=== PATIENT | male | born 1955 | race Caucasian/White ===

== ENCOUNTER 2016-07-07 17:05 | Emergency (ER) | payer BC ==
[~2016-07-07] VITALS: Ht 182.9 cm; Wt 86.0 kg
[~2016-07-07 17:05] MED LIST: LSN20 PO; METO25TA56 PO; MORP30TA23 PO
[2016-07-07 17:16] VITALS: TEMP 36.4; Ht 182.9 cm; Wt 86.0 kg
[2016-07-07] MEDS ORDERED: SODIUM CHLORIDE 0.9% 1000ML 1,000 ML IV STA (17:30)
[2016-07-07] MEDS ORDERED: ONDANSETRON 8 MG/54 ML D5W IV STA (17:30)
[2016-07-07] MEDS: FENTANYL CITRATE INJ 50 MCG/1 ML 2 ML VIAL IV PRN ×4 (17:38→20:18)
[2016-07-07] MEDS ORDERED: IBUP-103 PO (17:51)
[2016-07-07] MEDS ORDERED: GABA-113 PO (17:51)
[2016-07-07] MEDS ORDERED: MULT-923 (17:51)
[2016-07-07] MEDS ORDERED: FIBER (17:51)
[2016-07-07] MEDS ORDERED: ONDANSETRON INJ 8 MG in DEXTROSE 5% 50ML 50 ML IV ONE (18:00)
--- NOTE | 2016-07-07 18:27 | DIAGNOSTIC IMAGING REPORT ---
RIGHT HUMERUS 3 VIEWS HISTORY: right humerus pain, prior pathologic fracture Right COMPARISON: None. FINDINGS: There is an oblique pathologic fracture within the mid shaft of the right humerus. This demonstrates 1.8 cm of medial displacement. There are surgical clips surrounding the mid humerus. There is a permeative lesion within the mid shaft of the right humerus. IMPRESSION: A displaced oblique pathologic fracture within the mid shaft of the right humerus. Electronically signed by: Julian Singh M.D. 07/07/2016 6:25 PM Dictated Date/Time: 07/07/2016 6:24 PM
[2016-07-07 18:29] LABS: BASO % 0.2 %; BASO ABS # 0.02 K/uL (0-0.2); COMPLETE YES; EOS % 3.1 %; HEMATOCRIT 41.7 % (42-52); IG% 0.3 %; LYMPH % 23.6 %; LYMPH ABS # 2.37 K/uL (1.2-3.4); MEAN CELL VOLUME 91.6 fL (80-100); MEAN CORPUSCULAR HEMOGLOBIN 32.1 pg (25-34); MEAN PLATELET VOLUME 9.9 fL (7.4-10.4); NEUT % 67.8 %; PLATELET COUNT 190 K/uL (130-400); RED BLOOD COUNT 4.55 M/uL (4.7-6.1); WHITE BLOOD COUNT 10.04 K/uL (4.8-10.8)
[2016-07-07 18:39] LABS: INR 1.1 (0.9-1.1); PARTIAL THROMBOPLASTIN RATIO 0.8; PROTHROMBIN TIME (PATIENT) 12.2 SECONDS (9.0-12.0)
[2016-07-07 18:44] LABS: ALT/SGPT 18 U/L (12-78); AST/SGOT 12 U/L (15-37); BLOOD UREA NITROGEN 18 mg/dl (7-18); BUN/CREATININE RATIO 16.6 (10-20); CALCIUM 8.6 mg/dl (8.5-10.1); CARBON DIOXIDE 28 mmol/L (21-32); CHLORIDE 107 mmol/L (98-107); GLUCOSE 104 mg/dl (70-99); SODIUM 143 mmol/L (136-145)
[2016-07-07 18:47] LABS: ALKALINE PHOSPHATASE 59 U/L (45-117)
[2016-07-07] MEDS ORDERED: ONDANSETRON INJ 2 MG/ML 2 ML VIAL ONE (20:15)
--- NOTE | 2016-07-07 20:44 | DIAGNOSTIC IMAGING REPORT ---
RIGHT HUMERUS MIN 2 VIEWS ROUTINE CLINICAL HISTORY: post redux Right. Right humerus fracture. COMPARISON STUDY: Right humerus 07/07/2016. FINDINGS: Patient is status post reduction of the pathologic fracture within the mid shaft of the right humerus. This demonstrates improved anatomic alignment. There is persistent medial angulation with 11 mm of medial displacement. The permeative lesion within the mid shaft of the right humerus and surrounding surgical clips are again noted. IMPRESSION: Status post reduction of the pathologic fracture within the mid shaft of the right humerus with improved anatomic alignment. There is persistent medial angulation with 11 mm of medial displacement. Electronically signed by: Julian Singh M.D. 07/07/2016 8:42 PM Dictated Date/Time: 07/07/2016 8:40 PM
[2016-07-07] MEDS ORDERED: OXYCODONE IR HOME PACK PO ONE (21:45)
[2016-07-07] MEDS ORDERED: ONDANSETRON HOME PACK 4MG OD TAB PO ONE (21:45)
[2016-07-07] MEDS ORDERED: OXYCODONE HCL IR 5 MG TAB (IMMEDIATE RELEASE) PO STA (22:02)
[2016-07-07] MEDS ORDERED: ONDA4TAB10 SL (22:04)
[2016-07-07] MEDS ORDERED: OXYC1TAB3 PO (22:04)
[2016-07-07] MEDS ORDERED: ONDANSETRON 4MG OD TAB ONE (22:20)
--- NOTE | 2016-07-07 22:20 | ORTHOPEDIC CONSULTATION ---
DATE OF CONSULTATION: 07/07/2016 EMERGENCY ROOM CONSULTATION CHIEF COMPLAINT: Right arm pain. HISTORY OF PRESENT ILLNESS: The patient is a 60-year-old male with complicated history of the right humerus. He has a diagnosis of rhabdomyosarcoma, about approximately 35 years ago. He had excision in this region and to get clear margins he had an excise into a portion of the bone. He subsequently also had a radial nerve cross in this region. He subsequently had a fracture the following year, which was treated conservatively and another fracture a year following that, again treated conservatively. The fracture was healed. A year after that, he underwent surgery for a tendon transfer for treatment of his radial nerve palsy. He was playing with his dog and had an external rotation type trauma to the arm and felt a pop. X-rays demonstrate an oblique fracture of the humerus with moth-eaten appearance consistent with his previous procedures. Currently, complaining of pain in the humerus as well as some tingling in the 4th and 5th digits. The sensation in the remaining digits is at baseline. PAST MEDICAL HISTORY: Graves disease, hypertension, and rhabdomyosarcoma. PAST SURGICAL HISTORY: Excision of rhabdomyosarcoma of the right arm. ALLERGIES: IVP DYE. MEDICATIONS: Metoprolol, lisinopril. FAMILY HISTORY: Noncontributory. REVIEW OF SYSTEMS: As above. PHYSICAL EXAMINATION: VITAL SIGNS: Afebrile. Vital signs stable. GENERAL: Alert and oriented x3, no acute distress. Mood and affect are normal. He is pleasant and cooperative with examination. HEENT: Atraumatic. CHEST: Clear. CARDIOVASCULAR: Regular rate and rhythm. ABDOMEN: Soft, nontender. EXTREMITIES: Right upper extremity has palpable radial pulse. The light touch sensation is decreased over the entirety of the hand, distally. He has normal sensation over the palm. He complains of some decreased sensation over the fourth and fifth digits which is different than from his baseline. He has a baseline sensation which is slightly decreased from normal from what has been over the thumb, index and long fingers. He has some motion to dorsiflexion of the wrist. From his tendon transfer, he has difficulty in extension of the thumb. He is able to cross his fingers and is able to bring the hand to fist. Examination more proximally, no tenderness to palpation along the forearm or elbow. There is a deformity on mid aspect of the humerus with apex anterior. Skin is intact. He has a surgical scar posteriorly along the arm and significant soft tissue defect posteriorly from his previous triceps excision for his rhabdomyosarcoma. Examination of contralateral extremity is unremarkable. IMAGING DATA: X-rays of the right humerus demonstrates multiple post-surgical cachorro in position. It is a spiral oblique fracture of the humerus. There is some moth-eaten appearance around the fracture site. No changes of the bone, more proximally or distally. Post-reduction x-rays - the fracture is shortened about 1.5 cm and 100% ulnarly translated. Post-reduction x-rays demonstrate good mu-ism of alignment, both on AP as well as lateral x-rays. ASSESSMENT: Displaced right humerus fracture status post tumor excision, 35 years ago with several previous fractures treated nonoperatively. PLAN: My hope will be to treat this fracture nonoperatively. There is some concerning findings on his bone, it is hard to know whether these are more acute findings of change in the bone or if this is residual changes from his previous fractures as well as his tumor excision. We were able to get a reasonable reduction. He is in a coaptation splint with a posterior bolster currently. I will see him back in the office on for followup x-rays. All questions were answered.
--- NOTE | 2016-07-07 22:27 | OPERATIVE REPORT ---
DATE OF OPERATION: 07/07/2016 CHIEF COMPLAINT: Right arm pain. PREPROCEDURE DIAGNOSIS: Displaced right humerus fracture. POSTPROCEDURE DIAGNOSIS: Same. PROCEDURE: Closed reduction and splinting, right humerus fracture. SURGEON: Dr. Gabriel Garcia. CHANGE MANAGEMENT LEAD: None. ANESTHESIA: None. COMPLICATIONS: None. ESTIMATED BLOOD LOSS: None. INDICATIONS: The patient is a 60-year-old male who had previously a tumor excision of his humerus with need for removal portion of the bone and he subsequently developed 2 separate fractures of the humerus, both of which were treated nonoperatively. He sustained an injury earlier today with his dog, felt a pop in the arm. X-rays demonstrated displaced humerus fracture. Given the amount of displacement, I recommended closed reduction and coaptation splinting. Risks, benefits and alternatives to procedure were discussed with the patient and he wished to proceed. DESCRIPTION OF PROCEDURE: The patient was identified, laterality was confirmed. We gave him some IV narcotic pain medication and then performed a closed reduction, placed a coaptation splint on the arm. Initial post-reduction x-rays were not adequate. We reduced, so the splint was removed and I re-reduced the arm, placed a coaptation splint as well as a posterior splint in place. These post-reduction x-rays are much better on alignment with good anabaptism of the alignment both on AP and lateral x-rays. He tolerated this well. We will see him back in the office on . I attest to the content of the Intraoperative Record and any orders documented therein. Any exceptio ns are noted below.
[2016-07-07 22:58] VITALS: BP 117/79; PULSE 73; O2SAT 98
--- NOTE | 2016-07-07 23:28 | EMERGENCY ROOM VISIT NOTE ---
History Report prepared by Heriberto: Robert Mccoy Under the Supervision of: Dr. Peng Macdonald M.D. First contact with patient: 17:26 Chief Complaint: ARM PAIN Stated Complaint: COMPOUND FRACTURE IN RT HUMERUS History of Present Illness The patient is a 60 year old male who presents to the Emergency Room with complaints of persistent traumatic right arm pain since earlier today. The pain is rated 7 or 8/10 in severity and is felt throughout the upper right arm. The patient was playing with his dog when he injured the arm. The dog was falling off the bed which the patient tried to prevent when he heard the arm "crack". He became lightheaded after the incident. The patient also complains of nausea but he has not vomited. He has new right upper extremity tingling in the fingers. The arm is fragile from a previous tumor removal from that arm. He has also had triceps muscle removed from the arm. The patient broke his right arm twice, with the last time being 30 years ago. He followed up with Orthopedic surgery in [place]. The patient has history of thyroid disease. Patient denies LOC, headache, visual changes, neck pain, chest pain, breathing difficulties, vomiting, abdominal pain, back pain, left upper extremity pain, lower extremity pain, weakness, open wounds, active bleeding, or other complaints. Source of History: patient Onset: earlier today Position: arm (right) Symptom Intensity: 7 or 8/10 Quality: other (traumatic) Timing: other (persistent) Associated Symptoms: + nausea, + numbness Review of Systems See HPI for pertinent positives and negatives. A total of ten systems were reviewed and were otherwise negative. Past Medical & Surgical Medical Problems: (1) Bone cancer (2) Thyroid disease Family History No pertinent family history Social History Smoking Status: Former Smoker Alcohol Use: none Drug Use: none Occupation Status: employed Current/Historical Medications Scheduled Lisinopril (Lisinopril), 20 MG PO DAILY Metoprolol Tartrate (Lopressor) (Lopressor), 25 MG PO BID Ondasetron Odt (Zofran Odt), 4 MG SL Q6H Scheduled PRN Oxycodone Ir (Roxicodone Ir), 1-2 TAB PO Q4H PRN for Severe Pain Miscellaneous Medications Fiber Laxative (Fiber Laxative) Gabapentin (Neurontin), 300 MG PO Ibuprofen Tab (Advil), 200 MG PO Multiple Vitamins W/ Minerals (Multivitamin Men) Allergies Coded Allergies: Iodinated Diagnostic Agents (Verified Allergy, Unknown, IVP DYE = HIVES, ) Uncoded Allergies: HAY FEVER (Allergy, Unknown, 04/01/02) Physical Exam Vital Signs Date Time Temp Pulse Resp B/P Pulse Ox O2 Delivery O2 Flow Rate FiO2 07/07/16 22:58 73 18 117/79 98 07/07/16 21:44 69 07/07/16 21:00 75 18 119/74 95 Room Air 07/07/16 20:20 67 16 127/79 97 Room Air 07/07/16 18:49 63 16 120/80 98 Room Air 07/07/16 17:38 61 07/07/16 17:16 36.4 59 22 72/52 95 Room Air Physical Exam GENERAL: Awake, alert, uncomfortable appearing, no significant distress HEAD: Normocephalic, atraumatic. No maier sign. No raccoon eyes. EYES: Normal conjunctiva. PERRL. EARS: External ears normal. Right TM normal. Left TM normal. NOSE: Atraumatic OROPHARYNX: Lips, tongue, and mucosa unremarkable. No erythema or exudate. NECK: Supple. No tracheal deviation or JVD. No posterior midline tenderness. No step offs noted. RESPIRATORY: CTA bilaterally CARDIAC: Regular rate, normal rhythm. ABDOMEN: Inspection reveals no abnormalities. Soft, non distended. No tenderness to palpation. No hernias. BACK: No midline step offs or tenderness to palpation. Unremarkable. PELVIS: Stable to rock. SKIN: Normal. LYMPH: No adenopathy. MUSCULOSKELETAL: New tingling in the right upper 4th and 5th digits. Thumb extension limited secondary to prior surgery. Triceps area of the right upper arm is generally tender with surgical alteration to the musculature. Range of motion of right elbow and shoulder limited secondary to pain. Tenderness to the proximal right humerus and deltoid. Left upper extremity and bilateral lower extremities are atraumatic. NEURO: GCS 15. Normal sensorium. No sensory or motor deficits noted. Medical Decision & Procedures ER Provider Diagnostic Interpretation: Radiology results as stated below per my review and radiologist interpretation: RIGHT HUMERUS 3 VIEWS HISTORY: right humerus pain, prior pathologic fracture Right COMPARISON: None. FINDINGS: There is an oblique pathologic fracture within the mid shaft of the right humerus. This demonstrates 1.8 cm of medial displacement. There are surgical clips surrounding the mid humerus. There is a permeative lesion within the mid shaft of the right humerus. IMPRESSION: A displaced oblique pathologic fracture within the mid shaft of the right humerus. Electronically signed by: Julian Singh M.D. 07/07/2016 6:25 PM Dictated Date/Time: 07/07/2016 6:24 PM RIGHT HUMERUS MIN 2 VIEWS ROUTINE CLINICAL HISTORY: post redux Right. Right humerus fracture. COMPARISON STUDY: Right humerus 07/07/2016. FINDINGS: Patient is status post reduction of the pathologic fracture within the mid shaft of the right humerus. This demonstrates improved anatomic alignment. There is persistent medial angulation with 11 mm of medial displacement. The permeative lesion within the mid shaft of the right humerus and surrounding surgical clips are again noted. IMPRESSION: Status post reduction of the pathologic fracture within the mid shaft of the right humerus with improved anatomic alignment. There is persistent medial angulation with 11 mm of medial displacement. Electronically signed by: Julian Singh M.D. 07/07/2016 8:42 PM Dictated Date/Time: 07/07/2016 8:40 PM Laboratory Results 07/07/16 18:15 Red Blood Count 4.55, Mean Corpuscular Volume 91.6, Mean Corpuscular Hemoglobin 32.1, Mean Corpuscular Hemoglobin Concent 35.0, Mean Platelet Volume 9.9, Neutrophils (%) (Auto) 67.8, Lymphocytes (%) (Auto) 23.6, Monocytes (%) (Auto) 5.0, Eosinophils (%) (Auto) 3.1, Basophils (%) (Auto) 0.2, Neutrophils # (Auto) 6.81, Lymphocytes # (Auto) 2.37, Monocytes # (Auto) 0.50, Eosinophils # (Auto) 0.31, Basophils # (Auto) 0.02 07/07/16 18:15 Test 07/07/16 18:15 White Blood Count 10.04 K/uL (4.8-10.8) Red Blood Count 4.55 M/uL (4.7-6.1) Hemoglobin 14.6 g/dL (14.0-18.0) Hematocrit 41.7 % (42-52) Mean Corpuscular Volume 91.6 fL (80-100) Mean Corpuscular Hemoglobin 32.1 pg (25-34) Mean Corpuscular Hemoglobin Concent 35.0 g/dl (32-36) Platelet Count 190 K/uL (130-400) Mean Platelet Volume 9.9 fL (7.4-10.4) Neutrophils (%) (Auto) 67.8 % Lymphocytes (%) (Auto) 23.6 % Monocytes (%) (Auto) 5.0 % Eosinophils (%) (Auto) 3.1 % Basophils (%) (Auto) 0.2 % Neutrophils # (Auto) 6.81 K/uL (1.4-6.5) Lymphocytes # (Auto) 2.37 K/uL (1.2-3.4) Monocytes # (Auto) 0.50 K/uL (0.11-0.59) Eosinophils # (Auto) 0.31 K/uL (0-0.5) Basophils # (Auto) 0.02 K/uL (0-0.2) RDW Standard Deviation 42.8 fL (36.4-46.3) RDW Coefficient of Variation 12.7 % (11.5-14.5) Immature Granulocyte % (Auto) 0.3 % Immature Granulocyte # (Auto) 0.03 K/uL (0.00-0.02) Prothrombin Time 12.2 SECONDS (9.0-12.0) Prothromb Time International Ratio 1.1 (0.9-1.1) Activated Partial Thromboplast Time 21.6 SECONDS (21.0-31.0) Partial Thromboplastin Ratio 0.8 Anion Gap 8.0 mmol/L (3-11) Est Creatinine Clear Calc Drug Dose 80.4 ml/min Estimated GFR () 85.3 Estimated GFR (Non- 73.6 BUN/Creatinine Ratio 16.6 (10-20) Calcium Level 8.6 mg/dl (8.5-10.1) Total Bilirubin 0.3 mg/dl (0.2-1) Direct Bilirubin < 0.1 mg/dl (0-0.2) Aspartate Amino Transf (AST/SGOT) 12 U/L (15-37) Alanine Aminotransferase (ALT/SGPT) 18 U/L (12-78) Alkaline Phosphatase 59 U/L (45-117) Total Protein 6.6 gm/dl (6.4-8.2) Albumin 3.6 gm/dl (3.4-5.0) Lipase 172 U/L (73-393) Laboratory results reviewed by me Medications Administered Medications (Trade) Dose Ordered Sig/Gege Route Start Time Stop Time Status Last Admin Dose Admin Sodium Chloride (Nss 1000ml) 1,000 ml @ 999 mls/hr Q1H1M STAT IV 07/07/16 17:30 07/07/16 18:30 DC 07/07/16 17:30 999 MLS/HR Ondansetron HCl (Zofran 8mg Iv) 8 mg NOW STAT IV 07/07/16 17:30 07/07/16 17:33 DC 07/07/16 18:00 8 MG Fentanyl Citrate (Fentanyl Inj) 100 mcg Q20M PRN IV 07/07/16 17:30 07/21/16 17:29 07/07/16 20:18 100 MCG Ondansetron HCl (Zofran Inj) 4 mg STK-MED ONCE .ROUTE 07/07/16 20:15 07/07/16 20:16 DC 07/07/16 20:15 4 MG Ondansetron HCl (ZOFRAN ODT 4MG Home Pack) 1 homepack UD ONCE PO 07/07/16 21:45 07/07/16 21:46 DC 07/07/16 21:45 1 HOMEPACK Oxycodone HCl (Roxicodone Immediate Rel 5MG Home Pack) 1 homepack UD ONCE PO 07/07/16 21:45 07/07/16 21:46 DC 07/07/16 22:22 1 HOMEPACK Oxycodone HCl (Roxicodone Immediate Rel Tab) 5 mg NOW STAT PO 07/07/16 22:02 07/07/16 22:03 DC 07/07/16 22:21 5 MG Ondansetron HCl (Zofran Odt) 4 mg STK-MED ONCE .ROUTE 07/07/16 22:20 07/07/16 22:21 DC 07/07/16 22:20 4 MG ECG Indication: other (near syncope) Rate (beats per minute): 61 Rhythm: normal sinus Findings: no acute ischemic change, no ectopy ED Course 1730: The patient was evaluated in room A4b. A complete history and physical exam was performed. 1730: Fentanyl 100 mcg IV, Zofran 8 mg IV, NSS 1000 ml @ 999 mls/hr. 1800: Ondansetron HCl 8 mg / dextrose 54 ml @ 216 mls/hr. 1807: Reassessed the patient. 1834: Discussed the case with Dr. Garcia, [facility]. He will look at the X-ray and call me back. 1906: De. Garcia called back. He will be in to see the patient. 1907: Updated the patient. He is feeling okay. 1919: Dr. Garcia at bedside. 2144: Oxycodone IR 5 mg PO homepack, Zofran Odt 4 mg PO homepack. 2146: Dr. Garcia wrapped the patient's arm. They should follow up in the Orthopedics Office. 2154: I reevaluated the patient. Discussed results and discharge instructions: He verbalized understanding and agreement. The patient is ready for discharge. Medical Decision Prior records reviewed and summarized above. Triage Nursing notes reviewed and agree them. Additional history obtained from family. The patient's history was concerning for traumatic injury. Differential diagnosis: Etiologies such as fracture, dislocation, neurovascular compromise, compartment syndrome, soft tissue injury, as well as others were entertained. Physical examination: Consistent with an isolated right arm injury. ER treatment provided: IV normal saline IV Zofran IV fentanyl On reassessment the patient felt better. Splinting and reduction by orthopedics Oral oxycodone and Zofran Diagnostics interpreted by me: ECG: Normal The labs revealed an unremarkable CBC, coags, and chemistry panel. Imaging studies: Xrays as above. Consultation: A consultation was placed with the orthopedist, Dr. Gabriel Garcia. The case was discussed and diagnostics were reviewed. The patient was evaluated in the ER for further treatment. The patient was splinted. He was placed in a sling. He will see the patient in the office for follow-up. By the evaluation outlined above emergent etiologies such as open fracture, dislocation, neurovascular compromise, compartment syndrome, infections, as well as others were deemed relatively unlikely. The patient and significant other were informed about the findings as listed above. All questions were answered and they were pleased with the treatment. Return instructions were outlined and the patient was discharged in stable condition. Prescription management: Oxy IR Zofran Referral: The patient was referred to [facility] for follow-up care. The patient was referred to their primary care physician in 2 to 3 days for a recheck of your current condition. The chart was completed utilizing [employer] Speech voice recognition software. Grammatical errors, random word insertions, pronoun errors, and incomplete sentences are an occasional consequence of this system due to software limitations, ambient noise, and hardware issues. Any formal questions or concerns about the content, text, or information contained within the body of this dictation should be directly addressed to the physician for clarification. Consults Time Called: 1829 Consulting Physician: Dr. Garcia, [facility] Returned Call: 1834 He will look at the X-ray and call me back. Impression Primary Impression: Right humeral fracture Scribe Attestation The scribe's documentation has been prepared under my direction and personally reviewed by me in its entirety. I confirm that the note above accurately reflects all work, treatment, procedures, and medical decision making performed by me. Departure Information Dispostion Home / Self-Care Prescriptions Ondasetron Odt (ZOFRAN ODT) 4 Mg Tab 4 MG SL Q6H for Nausea, #6 TAB Prov: Peng Macdonald MD 07/07/16 Oxycodone Ir (Roxicodone Ir) 5 Mg Tab 1-2 TAB PO Q4H Y for Severe Pain, #24 TAB Prov: Peng Macdonald MD 07/07/16 Referrals Francisco Morgan M.D. (PCP) Forms HOME CARE DOCUMENTATION FORM, IMPORTANT VISIT INFORMATION Patient Instructions My [facility] Additional Instructions ORTHOPEDIC INSTRUCTIONS: DO NOT drive, drink alcohol, operate machinery, or perform dangerous activities today. You were given medications in the ER that can affect your ability to safely function or operate a vehicle. Oxycodone (OxyIR) 5mg: Take 1-2 pills every four hours for breakthrough pain. Avoid alcohol, operating machinery or dangerous equipment, working on ladders or roofs, DRIVING, or situations where being under the influence may be dangerous. It is recommended to use an [id number] stool softener such as Colace, 100mg twice daily while taking this medication to avoid constipation. Ibuprofen(Motrin, Advil) may be used for fever or pain. Use 600mg every six hours as needed. Take with food. Avoid using more than 2400mg in a 24 hour period. Do not use 2400mg per day for more than three consecutive days without physician direction. Prolonged inappropriate use can lead to stomach upset or ulcers. (AND/OR) Acetaminophen(Tylenol) may be used for fever or pain. Use 1000mg every six hours as needed. Avoid using more than 4000mg in a 24 hour period. Zofran 4 mg oral dissolving tablets: take one tablet and allow it to melt in your mouth every 4 hours as needed for nausea. Ice compresses for 20 minutes at a time four times daily for 2-3 days. Use the sling as instructed. Remove your arm from the sling 4-6 times a day and move all the joints around to keep them loose. Rest and elevate your injury. Do not get the splint wet. If your splint feels excessively tight, you have worsening pain, develop numbness or tingling, or your digits appear blue, loosen the radha wrap. Then reapply the radha wrap gently without removing the splint. If your symptoms are not quickly relieved return to the ER for re- evaluation. Return to the ER immediately for any numbness, tingling, severe pain, extreme swelling in the extremity or as needed. Call [facility], [phone], tomorrow to arrange follow up for your injury on with Dr. Garcia.
== END 2016-07-07 23:01 | disposition home or self-care (01) ==
LOC: C.EDB 17:06 → C.EDA 23:01
DX: M84.421A Pathological fracture, right humerus, initial encounter for fracture (principal); R42 Dizziness and giddiness; R11.0 Nausea; R20.2 Paresthesia of skin; E07.9 Disorder of thyroid, unspecified; Z79.899 Other long term (current) drug therapy; Z85.830 Personal history of malignant neoplasm of bone; Z87.828 Personal history of other (healed) physical injury and trauma; Z87.891 Personal history of nicotine dependence; Z98.890 Other specified postprocedural states; X58.XXXA Exposure to other specified factors, initial encounter

== ENCOUNTER 2025-02-13 13:52 | Inpatient (IN) ==
[2025-02-13 15:04] LABS: Hematocrit (blood only) 44.0 % (42.0-52.0); Hemoglobin 16.1 g/dL (14.0-18.0); Immature Granulocytes # (auto) 0.01 K/uL (0.01-0.20); Immature Granulocytes % (auto) 0.1 %; Mean Corpuscular Hemoglobin 31.6 pg (25.0-34.0); Mean Corpuscular Volume 86.3 fL (80.0-100.0); Platelet Count 188 K/uL (130-400); RDW Standard Deviation 38.2 fL (36.4-46.3); Red Blood Count 5.10 M/uL (4.70-6.10); White Blood Count 7.43 K/ul (4.8-10.8)
[2025-02-13 15:20] LABS: Alanine Aminotransferase 16 U/L (7-52); Albumin Globulin Ratio 1.4 (0.9-2); Albumin Level 4.5 gm/dl (3.4-5.0); Alkaline Phosphatase 85 U/L (34-104); Anion Gap 15 (3-11); Bilirubin,Total 1.3 mg/dl (0.2-1.0); Blood Urea Nitrogen 15 mg/dl (6-23); Calcium 9.9 mg/dl (8.6-10.3); Carbon Dioxide 23 mmol/L (21-32); Chloride 101 mmol/L (98-107); Globulin 3.2 gm/dl (2.5-4.0); Glucose 130 mg/dl (70-99(Fasting)); Lipase 50 U/L (11-82); Magnesium 1.8 mg/dl (1.7-2.4); Potassium 2.9 mmol/L (3.5-5.1); Sodium 139 mmol/L (136-145); Total Protein 7.7 gm/dl (6.0-8.3)
--- NOTE | 2025-02-13 15:20 | Emergency Department Note ---
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 Noted a large stool ball on [place] A Lacey and has had some diarrhea. Maybe a little bit of mid abdominal discomfort. More significantly however the last several days decreased intake with some fatigue and body ache. Maybe a little bit of nasal congestion. No fevers. Does not feel short of breath or chest pain but they have noticed maybe he has been breathing just a little bit fast. Not hypoxic at home on the pulse ox. Has been able to really keep down his meds the last 2 days due to nausea. Has Zofran at home but has not used it as it has not been helpful in the past. No falls with generalized weakness. PAST MEDICAL HISTORY: As noted above MEDICATIONS: Reviewed home medications SOCIAL HISTORY: PHYSICAL EXAM: GENERAL: alert and oriented in no acute distress on stretcher Head: normocephalic and atraumatic EYES: No injection, discharge or icterus. NECK: Trachea midline. Postsurgical scars without erythema ENT: Mucous membranes pink and moist. LUNGS: Airway patent. No retractions. Breath sounds clear with good air entry bilaterally. HEART: Regular rate and rhythm. No chest wall tenderness ABDOMEN: Soft mildly tender mid abdomen without guarding or peritonitis. SKIN: Acyanotic, warm, dry, without rashes EXTREMITIES: Without swelling, tenderness or deformity NEUROLOGICAL: No aphasia. No facial droop or slurred speech. Normal strength and tone in the extremities. Sensation to gross touch normal. EK bpm normal sinus rhythm. No PVC or PAC. No acute ST segment elevation. QTc 490 CONTINUOUS CARDIAC MONITORING: was ordered and showed a heart rate of 60s bpm in normal sinus rhythm Patient's laboratory studies and imaging reviewed. Differential includes Infection, dehydration, metabolic abnormality, hypo/hyperglycemia, electrolyte disturbance, anemia, hypoxia, cardiac sources, intracerebral event, toxicologic, neurologic, as well as other pathologies. IMPRESSION/MEDICAL DECISION MAKING: Patient significant history of head neck cancer now more or less liquid diet nausea decreased intake. Has had some impaction constipation and hemoglobin discomfort and the nausea besides fluids and Zofran CT abdomen pelvis obtained. Basic blood work is obtained. No fevers. COVID flu RSV testing is sent as he does report some bodyaches generalized weakness and sinus congestion. I do want to exclude flu/COVID. Blood work here completed without significant anemia or leukocytosis. No renal dysfunction noted but an anion gap of 15 as well as a potassium of 2.9. Again do question given his poor intake and recent diarrhea if this is causing these abnormalities. Magnesium 1.8 is not severely low. No evidence concerning for acute hepatitis or pancreatitis at this time of significance. Troponin completed as well as EKG but do not believe this acute NC. Doubt PE and again denies significant respiratory issues. Not hypoxic here or tachypneic. Blood work does return with a mildly elevated troponin of 33. Question this is a bit of demand. Again receiving IV fluids, magnesium, and potassium here. Discussed with him and family staying for hydration as well as trending of his troponin which along with his weakness should improve with hydration and electrolyte supplementation. CT abdomen pelvis does not show an obstructive finding or finding of significant retained stool. Negative COVID flu RSV testing. DIAGNOSIS: Weakness, hypokalemia, elevated troponin DISPOSITION: Hospitalist will evaluate Patient was agreeable with this plan. 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) Subclinical hypothyroidism Unsatisfactory cheondoism of tooth Traumatic ulceration of tongue Neoplasm of lateral border of tongue Hypertension Gout Elevated PSA BPH (benign prostatic hyperplasia) Prostate cancer screening Urinary symptom or sign Graves' disease in remission Hyperthyroidism Herniation of lumbar intervertebral disc with radiculopathy (Acute 03/15/14) Thyroid disease (Chronic) Medical History Band keratopathy Detached retina Extruding scleral buckle History of brachytherapy High cholesterol History of chemotherapy Rhabdomyosarcoma Anemia Surgical History History of surgery History of radical dissection of right side of neck History of cataract surgery History of surgery Hx of inguinal hernia surgery History of surgery H/O cervical discectomy History of hemilaminectomy Family History Daughter Diabetes Autoimmune disorder Mother Lung cancer Father Myocardial infarction Medical history unknown Social History Smoking Status: Former smoker Tobacco Type: Cigarettes packs per day: 1; Cigarettes Per Day: 1-2 PPD x 20yrs; Do You Dip or Chew Tobacco: No; Hx Alcohol Use: No Hx Substance Use: Yes (Daily ) Prescribed Medications: Marijuana Preferred Language: Egyptian Communication Ability: Effective Communication Tools: IPad Visual Impairment: No Limitations Hearing Ability: Normal Yarn Skeins Examiner Required: No Beliefs That Will Affect Care: None marital status: Current Living Situation: Spouse 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 How many Children do You have: 1 Feels Safe at Home: Yes Diet: regular caffeine: No during the past year weight has: remained stable Allergies Allergies Allergy/AdvReac Type Severity Reaction Status Date / Time moxifloxacin Allergy Severe FLU LIKE Verified 02/13/25 17:49 SYMPTOMS sulfamethoxazole Allergy Intermediate Rash Verified 02/13/25 17:50 [From Bactrim] trimethoprim [From Bactrim] Allergy Intermediate Rash Verified 02/13/25 17:50 Iodinated Contrast Media Allergy Unknown IVP DYE = Verified 02/02/25 14:46 HIVES pollen extracts Allergy Unknown Sneezing Verified 02/13/25 17:50 Home Meds Home Medications Medication Instructions Recorded Confirmed aspirin 81 mg tablet,delayed 81 mg PO DAILY 12/07/18 02/13/25 release (Adult Low Dose Aspirin) lisinopril 20 mg tablet 40 mg PO DAILY 06/03/23 02/13/25 cetirizine 10 mg capsule (All Day 10 mg PO DAILY PRN Allergy Symptoms 02/04/24 02/13/25 Allergy (cetirizine)) fluorometholone acetate 0.1 % eye 1 drp ophthalmic (eye) DAILY 02/04/24 02/13/25 drops,suspension fluticasone propionate 50 2 spray intranasal DAILY PRN 02/04/24 02/13/25 mcg/actuation nasal Allergy Symptoms spray,suspension timolol 0.5 % eye drops 1 drp ophthalmic (eye) DAILY 02/04/24 02/13/25 escitalopram oxalate 20 mg tablet 20 mg PO DAILY 03/29/24 02/13/25 (Lexapro) hydroxyzine HCl 10 mg tablet 10 mg PO TID PRN Anxiety 03/29/24 02/13/25 verapamil 40 mg tablet 40 mg PO QID 07/23/24 02/13/25 pregabalin 75 mg capsule (Lyrica) 150 mg PO BID 11/30/24 02/13/25 Previous Rx's Medication Instructions Recorded levothyroxine 125 mcg tablet 125 mcg PO DAILY #90 tabs 11/30/24 Results & Data (ED) Vital Signs Vital Signs - 24 hr 02/13/25 14:02 02/13/25 14:53 02/13/25 15:56 Temperature 37.1 C Temperature Source Temporal Artery Scan Pulse Rate 81 73 Pulse Rate [Right Finger] 70 Pulse Rate from SpO2 Sensor Pulse Rhythm [Right Finger] Regular Pulse Strength [Right Finger] Normal Respiratory Rate 18 16 Respiratory Effort / Characteristics Non-Labored Spontaneous Non-Labored Respiratory Depth Normal Normal Respiratory Pattern Regular Blood Pressure 149/91 H Blood Pressure [Right Arm] 163/95 H Blood Pressure Mean 110 Blood Pressure Mean [Right Arm] 117 Blood Pressure Position Sitting Blood Pressure Position [Right Arm] Lying Pulse Oximetry 98 98 Oxygen Delivery Method Room Air Room Air Sepsis Recent Fever Within 48 Hours No Sepsis New/Unexplained Change in Mental Status N/A Sepsis Action Taken by Nursing No Action Required 02/13/25 16:00 02/13/25 16:30 02/13/25 17:00 Temperature Temperature Source Pulse Rate 59 L 64 Pulse Rate [Right Finger] Pulse Rate from SpO2 Sensor 60 64 64 Pulse Rhythm [Right Finger] Pulse Strength [Right Finger] Respiratory Rate 19 22 Respiratory Effort / Characteristics Respiratory Depth Respiratory Pattern Blood Pressure 170/98 H 165/99 H 165/98 H Blood Pressure [Right Arm] Blood Pressure Mean 122 121 120 Blood Pressure Mean [Right Arm] Blood Pressure Position Blood Pressure Position [Right Arm] Pulse Oximetry 98 98 96 Oxygen Delivery Method Sepsis Recent Fever Within 48 Hours Sepsis New/Unexplained Change in Mental Status Sepsis Action Taken by Nursing Laboratory Data 02/13/25 14:45 02/13/25 14:45 Lab Results 02/13/25 02/13/25 Range/Units 14:45 16:00 WBC 7.43 (4.8-10.8) K/ul RBC 5.10 (4.70-6.10) M/uL Hgb 16.1 (14.0-18.0) g/dL Hct 44.0 (42.0-52.0) % MCV 86.3 (80.0-100.0) fL MCH 31.6 (25.0-34.0) pg MCHC 36.6 H (32.0-36.0) g/dL RDW Std Deviation 38.2 (36.4-46.3) fL RDW Coeff of Linda 12.1 (11.5-14.5) % Plt Count 188 (130-400) K/uL MPV 11.0 (9.4-12.4) fL Immature Gran % (Auto) 0.1 % Neut % (Auto) 87.0 % Lymph % (Auto) 6.1 % Nance % (Auto) 6.5 % Eos % (Auto) 0.0 % Baso % (Auto) 0.3 % Neut # (Auto) 6.47 (1.40-6.50) K/uL Lymph # (Auto) 0.45 L (1.20-3.40) K/uL Nance # (Auto) 0.48 (0.11-0.59) K/uL Eos # (Auto) 0.00 (0.00-0.50) K/uL Baso # (Auto) 0.02 (0.00-0.20) K/uL Immature Gran # (Auto) 0.01 (0.01-0.20) K/uL Sodium 139 (136-145) mmol/L Potassium 2.9 L (3.5-5.1) mmol/L Chloride 101 (98-107) mmol/L Carbon Dioxide 23 (21-32) mmol/L Anion Gap 15 H (3-11) BUN 15 (6-23) mg/dl Creatinine 0.81 (0.6-1.4) mg/dl Est Cr Clr Drug Dosing Not Reportable eGFR 96.64 BUN/Creatinine Ratio 18.5 (10-20) Glucose 130 H (70-99(Fasting)) mg/dl Calcium 9.9 (8.6-10.3) mg/dl Magnesium 1.8 (1.7-2.4) mg/dl Total Bilirubin 1.3 H (0.2-1.0) mg/dl AST 50 H (13-39) U/L ALT 16 (7-52) U/L Alkaline Phosphatase 85 (34-104) U/L Troponin I High Sens 33.9 H (0-20) pg/ml Total Protein 7.7 (6.0-8.3) gm/dl Albumin 4.5 (3.4-5.0) gm/dl Globulin 3.2 (2.5-4.0) gm/dl Albumin/Globulin Ratio 1.4 (0.9-2) Lipase 50 (11-82) U/L SARS-CoV-2 (PCR) NEGATIVE (Negative) Influenza Type A (PCR) Negative (Neg) Influenza Type B (PCR) Negative (Neg) RSV (RT-PCR) Negative (Neg) Administered Medications Enoxaparin Sodium (Enoxaparin Inj 40 Mg/0.4 Ml Syr) 40 mg SQ HS OBIE Stop: 03/15/25 20:59 Last Admin: 02/13/25 21:52 Dose: 40 mg Documented By: SHABANA Lactated Ringer's (Lr) 1,000 mls @ 80 mls/hr IV .[id number] OBIE Stop: 02/14/25 18:44 Last Admin: 02/13/25 18:39 Dose: 80 mls/hr Documented By: ZAID Promethazine HCl (Phenergan) 12.5 mg in 50.5 mls @ 202 mls/hr IV Q6H PRN PRN Reason: Nausea And Vomiting Stop: 03/15/25 17:41 Last Infusion: 02/13/25 18:53 Dose: Infused Documented By: Admin: 02/13/25 18:38 Dose: 202 mls/hr Documented By: ZAID Prochlorperazine 5 mg/ Syringe 5 mls @ 5 mls/min IV Q6H PRN PRN Reason: Nausea And Vomiting Stop: 03/15/25 17:41 Last Admin: 02/13/25 21:18 Dose: 5 mls/min Documented By: SHABANA Melatonin (Melatonin 3 Mg Tab) 6 mg PO HS PRN PRN Reason: Sleep Stop: 03/15/25 19:53 Last Admin: 02/13/25 21:51 Dose: 6 mg Documented By: SHABANA Pregabalin (Pregabalin 150 Mg Cap) 150 mg PO BID OBIE Stop: 03/15/25 20:59 Last Admin: 02/13/25 21:52 Dose: 150 mg Documented By: SHABANA Verapamil HCl (Verapamil Hcl 40 Mg Tab) 40 mg PO QID OBIE Stop: 03/15/25 20:59 Last Admin: 02/13/25 21:52 Dose: 40 mg Documented By: SHABANA Discontinued Medications Hydroxyzine HCl (Hydroxyzine Hcl 25 Mg Tab) 25 mg PO NOW STA Stop: 02/13/25 19:55 Last Admin: 02/13/25 21:52 Dose: 25 mg Documented By: SHABANA Sodium Chloride (Nss) 1,000 mls @ 999 mls/hr IV .Q1H1M ONE Stop: 02/13/25 16:00 Last Infusion: 02/13/25 16:52 Dose: Infused Documented By: Admin: 02/13/25 15:25 Dose: 999 mls/hr Documented By: MAICOL Potassium Chloride (K Roe / Wtr) 10 meq in 100 mls @ 100 mls/hr IV ONE ONE Stop: 02/13/25 16:25 Last Infusion: 02/13/25 16:52 Dose: Infused Documented By: Admin: 02/13/25 15:40 Dose: 100 mls/hr Documented By: ERICA Magnesium Sulfate/Dextrose (Magnesium Sulfate / D5w) 1 gm in 100 mls @ 100 mls/hr IV NOW STA Stop: 02/13/25 16:38 Last Infusion: 02/13/25 16:52 Dose: Infused Documented By: Admin: 02/13/25 15:58 Dose: 100 mls/hr Documented By: ERICA Sodium Chloride (Nss) 500 mls @ 999 mls/hr IV .Q31M ONE Stop: 02/13/25 17:35 Last Infusion: 02/13/25 18:12 Dose: Infused Documented By: Admin: 02/13/25 17:40 Dose: 999 mls/hr Documented By: ERICA Potassium Chloride (K Roe / Wtr) 10 meq in 100 mls @ 100 mls/hr IV Q1H OBIE Stop: 02/13/25 19:44 Last Infusion: 02/13/25 21:46 Dose: Infused Documented By: Admin: 02/13/25 20:26 Dose: 100 mls/hr Documented By: Infusion: 02/13/25 19:42 Dose: Infused Documented By: Admin: 02/13/25 18:39 Dose: 100 mls/hr Documented By: ZAID Miscellaneous (Patient's Height &/Or Weight Needed) 1 each N/A NOW STA Stop: 02/13/25 17:48 Last Admin: 02/13/25 19:09 Dose: Not Given Documented By: ZAID Ondansetron HCl (Ondansetron Inj 2 Mg/Ml 2 Ml Vial) 4 mg IV NOW STA Stop: 02/13/25 15:01 Last Admin: 02/13/25 15:25 Dose: 4 mg Documented By: MAICOL Imaging Data Radiologist's Impression: Abdomen/Pelvis CT 02/13/25 15:00 EXAM: CT Abdomen and Pelvis Without Intravenous Contrast INDICATION: Constipation and weakness. TECHNIQUE: Axial computed tomography images of the abdomen and pelvis without intravenous contrast. Sagittal and coronal reformatted images were created and reviewed. This CT exam was performed using one or more of the following dose reduction techniques: automated exposure control, adjustment of the mA and/or kV according to patient size, and/or use of iterative reconstruction technique. COMPARISON: No relevant prior studies available. FINDINGS: Limitations: None. Lung bases: Centrilobular emphysematous changes present in the lung bases. Pleural space: No visualized pleural effusion or pneumothorax. Heart: No abnormality noted. Mediastinum: No abnormality noted. ABDOMEN: Liver: Lack of intravenous contrast limits detection of some masses. No abnormality noted. Gallbladder and bile ducts: Small gallstones present. No ductal dilatation. Pancreas: No pancreatic mass, calcification, inflammation or ductal dilation noted. Spleen: No acute abnormality noted. Adrenals: No acute abnormality noted. Kidneys and ureters: 1.3 cm diameter partially rim calcified benign-appearing cyst in the anterior left kidney. There is a simple cyst in the lateral midpole of the left kidney. Small simple cyst in the lower pole of the right kidney. No further cyst evaluation required. No hydronephrosis or stone. No perinephric fluid. No urinary gas. Stomach and bowel: No distension or mucosal thickening. No inflammation noted. Typical amounts of formed stool in the colon. PELVIS: Appendix: Not distinctly defined. No right lower quadrant inflammatory process noted. Bladder: Appears normal for the degree of filling. No stones or inflammation. No large mass. Masses may not be detected in the absence of opacification. Reproductive: No abnormalities noted. ABDOMEN and PELVIS: Intraperitoneal space: No free air. No significant fluid collection. Bones/joints: Degenerative changes noted in the scoliotic spine. No acute osseous abnormality noted. Soft tissues: Small fat-containing right inguinal hernia. Vasculature: Atherosclerotic calcification of the aorta and branches. No aneurysm. Lymph nodes: No pathologically enlarged lymph nodes. IMPRESSION: 1. Cholelithiasis. 2. No intestinal obstruction or inflammation. ACT 112: N/A Electronically signed by Tawanna Quintero 02-13-2025 4:54 PM Discharge Plan Visit Data Chief Complaint: Dehydration Stated Complaint: DEHYDRATION, NOT EATING, POST BOWEL IMPACTIOIN ED Provider: Tyson Aguilera Discharge Problem: Hypokalemia, Nausea, Elevated troponin, Weakness Patient Disposition: Admitted As Inpatient Condition: Fair Discharge Instructions Interventions: ED Discharge Assessment Last Done: 02/13/25 20:04
[2025-02-13] MEDS: ONDANSETRON INJ 2 MG/ML 2 ML VIAL IV STA (15:25)
[2025-02-13] MEDS: SODIUM CHLORIDE 0.9% 1,000 ML IV ONE (15:25)
[2025-02-13] MEDS: POTASSIUM CHLORIDE / WTR 10 MEQ/100 ML PLCT IV ONE (15:40)
[2025-02-13] MEDS: MAGNESIUM SULFATE / D5W 1 GM/100 ML BAG IV STA (15:58)
--- NOTE | 2025-02-13 16:55 | CT Scan Report ---
EXAM: CT Abdomen and Pelvis Without Intravenous Contrast INDICATION: Constipation and weakness. TECHNIQUE: Axial computed tomography images of the abdomen and pelvis without intravenous contrast. Sagittal and coronal reformatted images were created and reviewed. This CT exam was performed using one or more of the following dose reduction techniques: automated exposure control, adjustment of the mA and/or kV according to patient size, and/or use of iterative reconstruction technique. COMPARISON: No relevant prior studies available. FINDINGS: Limitations: None. Lung bases: Centrilobular emphysematous changes present in the lung bases. Pleural space: No visualized pleural effusion or pneumothorax. Heart: No abnormality noted. Mediastinum: No abnormality noted. ABDOMEN: Liver: Lack of intravenous contrast limits detection of some masses. No abnormality noted. Gallbladder and bile ducts: Small gallstones present. No ductal dilatation. Pancreas: No pancreatic mass, calcification, inflammation or ductal dilation noted. Spleen: No acute abnormality noted. Adrenals: No acute abnormality noted. Kidneys and ureters: 1.3 cm diameter partially rim calcified benign-appearing cyst in the anterior left kidney. There is a simple cyst in the lateral midpole of the left kidney. Small simple cyst in the lower pole of the right kidney. No further cyst evaluation required. No hydronephrosis or stone. No perinephric fluid. No urinary gas. Stomach and bowel: No distension or mucosal thickening. No inflammation noted. Typical amounts of formed stool in the colon. PELVIS: Appendix: Not distinctly defined. No right lower quadrant inflammatory process noted. Bladder: Appears normal for the degree of filling. No stones or inflammation. No large mass. Masses may not be detected in the absence of opacification. Reproductive: No abnormalities noted. ABDOMEN and PELVIS: Intraperitoneal space: No free air. No significant fluid collection. Bones/joints: Degenerative changes noted in the scoliotic spine. No acute osseous abnormality noted. Soft tissues: Small fat-containing right inguinal hernia. Vasculature: Atherosclerotic calcification of the aorta and branches. No aneurysm. Lymph nodes: No pathologically enlarged lymph nodes. IMPRESSION: 1. Cholelithiasis. 2. No intestinal obstruction or inflammation. ACT 112: N/A Electronically signed by Tawanna Quintero 02-13-2025 4:54 PM
[2025-02-13 16:57] LABS: Influenza A virus by PCR Negative (Neg); Influenza B virus by PCR Negative (Neg); SARS CoV2 RNA(COVID-19) Ceph NEGATIVE (Negative)
[2025-02-13] MEDS ORDERED: ACETAMINOPHEN 325 MG TAB PO PRN (17:40)
[2025-02-13] MEDS ORDERED: POLYETHYLENE (MIRALAX) 17 GM PACK PO PRN (17:40)
[2025-02-13] MEDS: SODIUM CHLORIDE 0.9% 500 ML IV ONE (17:40)
--- NOTE | 2025-02-13 17:45 | History & Physical Report ---
Date of Service February 13, 2025 Assessment & Plan (1) Nausea: (2) Elevated troponin: (3) Hypokalemia: (4) Subclinical hypothyroidism: (5) Status post glossectomy: Plan This is a 69 year old male with PMHx of SCC of tongue s/p surgery/treatment, subclinical hypothyroidism, HTN, Gout, BPH who presented to the ED on 02/13/2025 for nausea and dehydration. While in the ED, his CBC was unremarkable; BMP did show a potassium of 2.9, stable renal function. TB was mildly elevated at 1.3, AST 50. Trop was elevated at 33.9, EKG without signs of ischemia. Lipase WNL. Negative for COVID/Flu/RSV. CTAP w/ cholelithiasis but no intestinal obstruction/inflammation. revealed normal amount of stool in colon. He was given 10meq IV KCl, 1gm of IV Mag, Zofran, & 1.5L of fluid in ED. #Nausea | Poor appetitie reportedly passed a stool ball at home on 02/09 after 1 dose of laxatives, has been nauseous & having diarrhea since. Baseline poor appetite secondary to tongue surgery but has worsened since these symptoms began CBC w/o leukocytosis. TB mildly elevated at 1.3, AST 50. CTAP negative for acute pathology. Did mention gallstones. 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 s/p 1.5L of fluid in ED + Zofran, per pt zofran not effective for him Continue IVF on admission. Phenergan 1st line, Compazine 2nd line for n/v. Clear liquid diet as tolerates. Consider nutrition consult when nausea subsides. #Elevated troponin 33.9 on admission, trend q6h EKG w/o signs of ischemia, recheck in AM suspect secondary to demand ischemia in the setting of dehydration. #Hypokalemia K 2.9 on admission, secondary to poor PO intake s/p 10meq KCl ordered in ED, additional 20meq KCl IV ordered on admission. Recheck in AM. #Subclinical hypothyroidism Recent TSH 11/2024 was elevated at 15.867 Recheck in AM along w/ Free T3/T4 Continue home levothyroxine dosing, adjust as necessary. #Mental health - Lexapro, hydroxyzine prn #HTN - Lisinopril, Verapamil #Neuropathic pain - pregablin DVT prophylaxis: lovenox Code: full Case was discussed with Dr. Turner at time of admission. History of Present Illness Primary Care Provider: Francisco Morgan MD This is a 69 year old male with PMHx of SCC of tongue s/p surgery/treatment, subclinical hypothyroidism, HTN, Gout, BPH who presented to the ED on 02/13/2025 for nausea and dehydration. Shar was seen & examined this morning. He reports on 02/09 he took one dose of a laxative & was able to pass a "massive" stool ball. He reports since then he has been nauseous and having ongoing diarrhea. Denies any vomiting. Does report abdominal cramping. States that his diet is currently nutrition in the form of liquid but has been unable to tolerate it lately. He denies any CP, SOB, changes in urinary symptoms. Reports surgery on his tongue was done in 12/2023. States he lives at home with his . Reports feeling nauseous still at time of my encounter & states B[employer]ely does not typically work for him. While in the ED, his CBC was unremarkable; BMP did show a potassium of 2.9, stable renal function. TB was mildly elevated at 1.3, AST 50. Trop was elevated at 33.9, EKG without signs of ischemia. Lipase WNL. Negative for COVID/Flu/RSV. CTAP w/ cholelithiasis but no intestinal obstruction/inflammation. revealed normal amount of stool in colon. He was given 10meq IV KCl, 1gm of IV Mag, Zof ran, & 1.5L of fluid in ED. Code discussion did take place and he does confirm he is a full code. Allergies Allergy/AdvReac Type Severity Reaction Status Date / Time moxifloxacin Allergy Severe FLU LIKE Verified 02/13/25 17:49 SYMPTOMS sulfamethoxazole Allergy Intermediate Rash Verified 02/13/25 17:50 [From Bactrim] trimethoprim [From Bactrim] Allergy Intermediate Rash Verified 02/13/25 17:50 Iodinated Contrast Media Allergy Unknown IVP DYE = Verified 02/02/25 14:46 HIVES pollen extracts Allergy Unknown Sneezing Verified 02/13/25 17:50 Home Medications Medication Instructions Recorded Confirmed Type aspirin 81 mg tablet,delayed 81 mg PO DAILY 12/07/18 02/13/25 History release (Adult Low Dose Aspirin) lisinopril 20 mg tablet 40 mg PO DAILY 06/03/23 02/13/25 History cetirizine 10 mg capsule (All Day 10 mg PO DAILY PRN Allergy Symptoms 02/04/24 02/13/25 History Allergy (cetirizine)) fluorometholone acetate 0.1 % eye 1 drp ophthalmic (eye) DAILY 02/04/24 02/13/25 History drops,suspension fluticasone propionate 50 2 spray intranasal DAILY PRN 02/04/24 02/13/25 History mcg/actuation nasal Allergy Symptoms spray,suspension timolol 0.5 % eye drops 1 drp ophthalmic (eye) DAILY 02/04/24 02/13/25 History escitalopram oxalate 20 mg tablet 20 mg PO DAILY 03/29/24 02/13/25 History (Lexapro) hydroxyzine HCl 10 mg tablet 10 mg PO TID PRN Anxiety 03/29/24 02/13/25 History verapamil 40 mg tablet 40 mg PO QID 07/23/24 02/13/25 History levothyroxine 125 mcg tablet 125 mcg PO DAILY #90 tabs 11/30/24 02/13/25 Rx pregabalin 75 mg capsule (Lyrica) 150 mg PO BID 11/30/24 02/13/25 History Past Med/Surg History Problem List (Updated 02/13/25 @ 18:26 by Mitzi Cain PA-C) Hypokalemia Elevated troponin Nausea Leg weakness, bilateral Status post glossectomy Nutritional assessment Depressed affect Difficulty swallowing Speech abnormality Hypothyroidism Fatigue 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) Subclinical hypothyroidism Unsatisfactory advent of tooth Traumatic ulceration of tongue Neoplasm of lateral border of tongue Hypertension Gout Elevated PSA BPH (benign prostatic hyperplasia) Prostate cancer screening Urinary symptom or sign Graves' disease in remission Hyperthyroidism Herniation of lumbar intervertebral disc with radiculopathy (Acute 03/15/14) Thyroid disease (Chronic) Medical History Band keratopathy Detached retina Extruding scleral buckle History of brachytherapy High cholesterol History of chemotherapy Rhabdomyosarcoma Anemia Surgical History History of surgery History of radical dissection of right side of neck History of cataract surgery History of surgery Hx of inguinal hernia surgery History of surgery H/O cervical discectomy History of hemilaminectomy Family History Daughter Diabetes Autoimmune disorder Mother Lung cancer Father Myocardial infarction Medical history unknown Social History Smoking Status: Former smoker Tobacco Type: Cigarettes packs per day: 1; Cigarettes Per Day: 1-2 PPD x 20yrs; Do You Dip or Chew Tobacco: No; Hx Alcohol Use: No Hx Substance Use: Yes (Daily ) Prescribed Medications: Marijuana Preferred Language: Guamanian Communication Ability: Effective Communication Tools: IPad Visual Impairment: No Limitations Hearing Ability: Normal Corporate Coordinator Required: No Beliefs That Will Affect Care: None marital status: Current Living Situation: Spouse 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 How many Children do You have: 1 Feels Safe at Home: Yes Diet: regular caffeine: No during the past year weight has: remained stable Physical Exam Physical Exam: General: NAD, VS: BP 165/98; P64; R22; T37.1C Resp: normal respiratory effort, lungs clear to auscultation CV: RRR, no murmur Abd: normal bowel sounds, non tender, soft Extremities: Moves all extremities, no edema Neuro: A&O x3 Skin: intact, no lesions noted Results & Data Results & Data Vital Signs (Past 12 Hours) Vital Signs Temp Pulse Pulse Resp BP BP Pulse Ox 02/13/25 17:00 165/98 H 96 02/13/25 16:30 64 22 165/99 H 98 02/13/25 16:00 59 L 19 170/98 H 98 02/13/25 15:56 73 02/13/25 14:53 70 16 163/95 H 98 02/13/25 14:02 37.1 C 81 18 149/91 H 98 O2 Del Method 02/13/25 17:00 02/13/25 16:30 02/13/25 16:00 02/13/25 15:56 02/13/25 14:53 Room Air 02/13/25 14:02 Room Air Code Status & VTE Plan VTE Prophylaxis Plan VTE Prophylaxis will be ordered: Yes PG Care Time/CCT Total # of Minutes Spent Total Time Spent with Patient: Total time spent is greater than 50% in coordination of care (as documented) at patient's floor/unit and/or counseling patient: Coding Level of Care Code 20878 INT INP/OBS CARE 375MIN Diagnoses Nausea R11.0 Elevated troponin R79.89 Hypokalemia E87.6 Subclinical hypothyroidism E03.8 Status post glossectomy Z90.49
[2025-02-13] MEDS: PROMETHAZINE 12.5 MG/50.5 ML BAG IV PRN (18:38)
[2025-02-13] MEDS: POTASSIUM CHLORIDE / WTR 10 MEQ/100 ML PLCT IV SCH (18:39)
[2025-02-13] MEDS: LACTATED RINGER'S 1,000 ML IV SCH (18:39)
[2025-02-13] MEDS: Patient's HEIGHT &/or WEIGHT Needed STA (19:09)
[2025-02-13] MEDS: PROCHLORPERAZINE 5 MG in SYRINGE 4 ML IV PRN (21:18)
[2025-02-13] MEDS: MELATONIN 3 MG TAB PO PRN (21:51)
[2025-02-13] MEDS: VERAPAMIL HCL 40 MG TAB PO SCH (21:52)
[2025-02-13] MEDS: PREGABALIN 150 MG CAP PO SCH (21:52)
[2025-02-13] MEDS: ENOXAPARIN INJ 40 MG/0.4 ML SYR SQ SCH (21:52)
[2025-02-13 22:28] LABS: Appearance Urine Clear (Clear); Bacteria Urine Automated None Seen (None Seen); Cast Urine Automated 0-2 /lpf (0-2); Epithelial Cell Urine Auto 0-2 /hpf (0-2); Glucose Urine UA Negative (Negative); WBC Urine Automated 0-5 /hpf (0-5)
[2025-02-14 06:16] LABS: Hematocrit (blood only) 41.8 % (42.0-52.0); Hemoglobin 15.0 g/dL (14.0-18.0); Mean Corpuscular Hemoglobin 31.1 pg (25.0-34.0); Mean Corpuscular Volume 86.7 fL (80.0-100.0); Platelet Count 168 K/uL (130-400); RDW Standard Deviation 39.0 fL (36.4-46.3); Red Blood Count 4.82 M/uL (4.70-6.10); White Blood Count 6.22 K/ul (4.8-10.8)
[2025-02-14] MEDS: LEVOTHYROXINE SODIUM 125 MCG TABLET PO SCH (06:26)
[2025-02-14 06:41] LABS: Anion Gap 9.0 (3-11); Blood Urea Nitrogen 13.0 mg/dl (6-23); Calcium 9.0 mg/dl (8.6-10.3); Carbon Dioxide 28.0 mmol/L (21-32); Chloride 106.0 mmol/L (98-107); Creatinine Clr Calc Pharmacy 77.6 ml/min; Glucose 103.0 mg/dl (70-99(Fasting)); Magnesium 2.1 mg/dl (1.7-2.4); Potassium 3.0 mmol/L (3.5-5.1); Sodium 143.0 mmol/L (136-145)
[2025-02-14 07:08] LABS: T4 Free Thyroxine 1.22 ng/dl (0.61-1.60); Thyroid Stimulating Hormone 0.538 uIu/ml (0.300-4.500)
[2025-02-14] MEDS: ESCITALOPRAM OXALATE 20 MG TAB PO SCH (07:58)
[2025-02-14] MEDS: ASPIRIN 81 MG ECTAB PO SCH (07:59)
--- NOTE | 2025-02-14 08:09 | Hospitalist Progress Note ---
"Date of Service February 14, 2025 Assessment & Plan (1) Nausea: (2) Elevated troponin: (3) Hypokalemia: (4) Subclinical hypothyroidism: (5) Status post glossectomy: Plan This is a 69 year old male with PMHx of SCC of tongue s/p surgery/treatment, subclinical hypothyroidism, HTN, Gout, BPH who presented to the ED on 02/13/2025 for nausea and dehydration. #Nausea | Poor appetite, associated with head and neck cancer reportedly passed a stool ball at home on 02/09 after 1 dose of laxatives, has been nauseous & having diarrhea since. Baseline poor appetite secondary to tongue surgery but has worsened since these symptoms began CTAP negative for acute pathology. Did mention gallstones. dye colorist dyer consult Phenergan 1st line, Compazine 2nd line for n/v. advance diet to full liquid #Elevated troponin 33.9 -46-52, no chest pain EKG w/o signs of ischemia suspect secondary to demand ischemia in the setting of dehydration. #Hypokalemia persistently low replete with oral and parenteral potassium and augment magnesium #Subclinical hypothyroidism Recent TSH 11/2024 was elevated at 15.867 Recheck in AM along w/ Free T3/T4 Continue home levothyroxine dosing, adjust as necessary. #Mental health - Lexapro, hydroxyzine prn #HTN - Lisinopril, Verapamil #Neuropathic pain - pregablin DVT prophylaxis: lovenox Code: full anticipate with electrolyte replacement and increasing oral intake will need another day in the hospital Admission and Anticipated Discharge Date Admission Date: February 13, 2025 Subjective pt is feeling improved some abdominal pain, no additional diarrhea still low potassium taking po although sparingly Physical Exam Physical Exam: awake and alert abd is soft nabs, mildly tender Results & Data Results & Data Vital Signs (Past 12 Hours) Vital Signs Temp Pulse Pulse Resp BP Pulse Ox Pulse Ox 02/14/25 07:56 99.5 F 67 16 117/76 93 02/14/25 03:37 97.7 F 68 18 138/83 94 02/13/25 22:33 69 02/13/25 22:15 98.2 F 73 16 175/76 H 97 02/13/25 22:03 97 02/13/25 20:28 72 02/13/25 20:14 98.3 F 68 18 171/94 H 97 O2 Del Method O2 Del Method 02/14/25 07:56 Room Air 02/14/25 03:37 Room Air 02/13/25 22:33 02/13/25 22:15 Room Air 02/13/25 22:03 Room Air 02/13/25 20:28 02/13/25 20:14 Room Air Laboratory Results review cbc review chemistry low potassium PG Care Time/CCT Total # of Minutes Spent Total Time Spent with Patient: Total time spent is greater than 50% in coordination of care (as documented) at patient's floor/unit and/or counseling patient: Coding Level of Care Code 88602 SUB INP/OBS CARE 3/50MIN Diagnoses Nausea R11.0 Elevated troponin R79.89 Hypokalemia E87.6 Subclinical hypothyroidism E03.8 Status post glossectomy Z90.49"
[2025-02-14] MEDS: POTASSIUM CHLORIDE 20 MEQ in LACTATED RINGER'S 1,000 ML IV SCH (10:05)
[2025-02-14] MEDS: MAGNESIUM SULFATE / D5W 1 GM/100 ML BAG IV ONE (10:05)
[2025-02-14] MEDS: POTASSIUM CHLORIDE / WTR 10 MEQ/100 ML PLCT IV SCH (10:06)
--- NOTE | 2025-02-14 11:41 | Electrocardiogram Report ---
Test Reason : Blood Pressure : */* mmHG Vent. Rate : 67 BPM Atrial Rate : 67 BPM P-R Int : 164 ms QRS Dur : 106 ms QT Int : 464 ms P-R-T Axes : 70 -9 60 degrees QTcB Int : 490 ms Normal sinus rhythm Nonspecific ST abnormality Prolonged QT Abnormal ECG When compared with ECG of 10-Sep-2022 23:14, Borderline criteria for Inferior infarct are no longer Present ST now depressed in Inferior leads Nonspecific T wave abnormality now evident in Inferior leads Confirmed by Carmen Aldridge (Luis Alberto) on 02/14/2025 11:40:56 AM Referred By: REFERRED SELF Confirmed By: Carmen Aldridge
[2025-02-14] MEDS: PREGABALIN 150 MG CAP PO ONE (13:10)
--- NOTE | 2025-02-14 14:54 | Electrocardiogram Report ---
Test Reason : Blood Pressure : */* mmHG Vent. Rate : 73 BPM Atrial Rate : 73 BPM P-R Int : 150 ms QRS Dur : 110 ms QT Int : 436 ms P-R-T Axes : 69 -38 47 degrees QTcB Int : 480 ms Normal sinus rhythm Left axis deviation Low voltage QRS Possible Inferior infarct , age undetermined QTcB >= 480 msec Abnormal ECG When compared with ECG of 13-Feb-2025 16:27, (unconfirmed) No significant change was found Confirmed by Fritz Birch ([id number]) on 02/14/2025 2:54:39 PM Referred By: REFERRED SELF Confirmed By: Fritz Birch
[2025-02-14] MEDS: PREGABALIN 150 MG CAP PO SCH (21:33)
[2025-02-15 08:04] LABS: Magnesium 2.2 mg/dl (1.7-2.4)
[2025-02-15 10:28] LABS: Alanine Aminotransferase 12.0 U/L (7-52); Albumin Globulin Ratio 1.6 (0.9-2); Albumin Level 3.6 gm/dl (3.4-5.0); Alkaline Phosphatase 53.0 U/L (34-104); Anion Gap 10.0 (3-11); Bilirubin,Total 1.0 mg/dl (0.2-1.0); Blood Urea Nitrogen 12.0 mg/dl (6-23); Calcium 8.5 mg/dl (8.6-10.3); Carbon Dioxide 27.0 mmol/L (21-32); Chloride 109.0 mmol/L (98-107); Creatinine Clr Calc Pharmacy 75.6 ml/min; Globulin 2.2 gm/dl (2.5-4.0); Glucose 111.0 mg/dl (70-99(Fasting)); Potassium 3.0 mmol/L (3.5-5.1); Sodium 146.0 mmol/L (136-145); Total Protein 5.8 gm/dl (6.0-8.3)
[2025-02-15] MEDS: POTASSIUM CHLORIDE / WTR 10 MEQ/100 ML PLCT IV SCH (12:16)
--- NOTE | 2025-02-15 15:24 | Electrocardiogram Report ---
Test Reason : Blood Pressure : */* mmHG Vent. Rate : 62 BPM Atrial Rate : 62 BPM P-R Int : 138 ms QRS Dur : 104 ms QT Int : 456 ms P-R-T Axes : -40 -24 31 degrees QTcB Int : 462 ms Unusual P axis, possible ectopic atrial rhythm Low voltage QRS Inferior infarct (cited on or before 14-Feb-2025) Abnormal ECG When compared with ECG of 14-Feb-2025 07:46, Ectopic atrial rhythm has replaced Sinus rhythm Confirmed by Fritz iBrch ([id number]) on 02/15/2025 3:23:55 PM Referred By: REFERRED SELF Confirmed By: Fritz Birch
--- NOTE | 2025-02-15 16:14 | Hospitalist Progress Note ---
"Date of Service February 15, 2025 Assessment & Plan (1) Nausea: (2) Elevated troponin: (3) Hypokalemia: (4) Subclinical hypothyroidism: (5) Status post glossectomy: Plan This is a 69 year old male with PMHx of SCC of tongue s/p surgery/treatment, subclinical hypothyroidism, HTN, Gout, BPH who presented to the ED on 02/13/2025 for nausea and dehydration. #Nausea | Poor appetite, associated with head and neck cancer reportedly passed a stool ball at home on 02/09 after 1 dose of laxatives, has been nauseous & having diarrhea since. Baseline poor appetite secondary to tongue surgery but has worsened since these symptoms began CTAP negative for acute pathology. Did mention gallstones. hyperion developer consult providing education and supplements #Elevated troponin 33.9 -46-52, no chest pain EKG w/o signs of ischemia suspect secondary to demand ischemia in the setting of dehydration. #Hypokalemia persistently low replete with oral and parenteral potassium and augmented magnesium #Subclinical hypothyroidism Recent TSH 11/2024 was elevated at 15.867 Recheck in AM along w/ Free T3/T4 Continue home levothyroxine dosing, adjust as necessary. #Mental health - Lexapro, hydroxyzine prn #HTN - Lisinopril, Verapamil #Neuropathic pain - pregablin DVT prophylaxis: lovenox Code: full anticipate with electrolyte replacement and increasing oral intake will need another day in the hospital Admission and Anticipated Discharge Date Admission Date: February 13, 2025 Subjective pt is feeling improved some abdominal pain, no additional diarrhea still low potassium, taking po well, having [place] instant breakfast from [employer] Physical Exam Physical Exam: awake and alert abd is soft nabs, mildly tender Results & Data Results & Data Vital Signs (Past 12 Hours) Vital Signs Temp Pulse Pulse Resp BP Pulse Ox O2 Del Method 02/15/25 15:23 98.4 F 65 20 131/85 93 Room Air 02/15/25 11:45 98.8 F 66 16 146/84 H 94 Room Air 02/15/25 08:00 59 L 02/15/25 07:45 97.9 F 55 L 16 142/90 H 93 Room Air Laboratory Results review chemistry augment potassium sparingly PG Care Time/CCT Total # of Minutes Spent Total Time Spent with Patient: Total time spent is greater than 50% in coordination of care (as documented) at patient's floor/unit and/or counseling patient: Coding Level of Care Code 55396 SUB INP/OBS CARE 235MIN Diagnoses Nausea R11.0 Elevated troponin R79.89 Hypokalemia E87.6 Subclinical hypothyroidism E03.8 Status post glossectomy Z90.49"
[2025-02-16 08:05] VITALS: RESP 18; TEMP 98.2
[2025-02-16 09:23] LABS: Alanine Aminotransferase 10.0 U/L (7-52); Albumin Globulin Ratio 1.6 (0.9-2); Albumin Level 3.6 gm/dl (3.4-5.0); Alkaline Phosphatase 52.0 U/L (34-104); Anion Gap 7.0 (3-11); Bilirubin,Total 0.8 mg/dl (0.2-1.0); Blood Urea Nitrogen 10.0 mg/dl (6-23); Calcium 8.6 mg/dl (8.6-10.3); Carbon Dioxide 28.0 mmol/L (21-32); Chloride 108.0 mmol/L (98-107); Creatinine Clr Calc Pharmacy 99.5 ml/min; Globulin 2.3 gm/dl (2.5-4.0); Glucose 103.0 mg/dl (70-99(Fasting)); Magnesium 2.0 mg/dl (1.7-2.4); Potassium 3.4 mmol/L (3.5-5.1); Sodium 143.0 mmol/L (136-145); Total Protein 5.9 gm/dl (6.0-8.3)
[2025-02-16 11:29] VITALS: BP 143/83; O2SAT 95
[2025-02-16 13:04] VITALS: PULSE 67
--- NOTE | 2025-02-16 13:23 | Discharge Summary ---
Discharge Summary Date of Service February 16, 2025 Principal Dx & Hospital Course #1 = Principal Diagnosis (1) Nausea: (2) Elevated troponin: (3) Hypokalemia: (4) Subclinical hypothyroidism: (5) Status post glossectomy: Plan This is a 69 year old male with PMHx of SCC of tongue s/p surgery/treatment, subclinical hypothyroidism, HTN, Gout, BPH who presented to the ED on 02/13/2025 for nausea and dehydration. #Nausea | Poor appetite, associated with head and neck cancer reportedly passed a stool ball at home on 02/09 after 1 dose of laxatives, has resoluition of nauseous & diarrhea since admission . Baseline poor appetite secondary to tongue surgery but has worsened since these symptoms began CTAP negative for acute pathology. Did mention gallstones. histology manager consult providing education and supplements, pt is eating better, is encouraged to try to eat at home #Elevated troponin 33.9 -46-52, no chest pain EKG w/o signs of ischemia suspect secondary to demand ischemia in the setting of dehydration. #Hypokalemia persistently low replete with oral and rx oral potassium on dc, with also recommendation of daily vitamin #Subclinical hypothyroidism Recent TSH 11/2024 was elevated at 15.867 Recheck in AM along w/ Free T3/T4 Continue home levothyroxine dosing, adjust as necessary. #Mental health - Lexapro, hydroxyzine prn #HTN - Lisinopril, Verapamil #Neuropathic pain - pregablin Notes For Next Care Provider Patient may need frequent electrolyte checks as an outpatient. Admission HPI Per Admitting Provider This is a 69 year old male with PMHx of SCC of tongue s/p surgery/treatment, subclinical hypothyroidism, HTN, Gout, BPH who presented to the ED on 02/13/2025 for nausea and dehydration. Shar was seen & examined this morning. He reports on 02/09 he took one dose of a laxative & was able to pass a "massive" stool ball. He reports since then he has been nauseous and having ongoing diarrhea. Denies any vomiting. Does report abdominal cramping. States that his diet is currently nutrition in the form of liquid but has been unable to tolerate it lately. He denies any CP, SOB, changes in urinary symptoms. Reports surgery on his tongue was done in 12/2023. States he lives at home with his . Reports feeling nauseous still at time of my encounter & states Zofran does not typically work for him. While in the ED, his CBC was unremarkable; BMP did show a potassium of 2.9, stable renal function. TB was mildly elevated at 1.3, AST 50. Trop was elevated at 33.9, EKG without signs of ischemia. Lipase WNL. Negative for COVID/Flu/RSV. CTAP w/ cholelithiasis but no intestinal obstruction/inflammation. revealed normal amount of stool in colon. He was given 10meq IV KCl, 1gm of IV Mag, Zofran, & 1.5L of fluid in ED. Code discussion did take place and he does confirm he is a full code. Discharge Exam Patient eating well with regard to liquid and slippery foods Abdomen NABS soft and nontender Discharge Plan Discharge Items Patient Disposition: Home - Self-Care Reason For Visit: DEHYDRATION Discharge Diagnosis: dehydration and low nutrition recovering from cancer treatment Condition on Discharge: Fair Activity: Resume your previous activity Non-emergency contact: Primary Care Provider Call non-emergency contact if: your symptoms worsen Follow-up/Referrals: Francisco Morgan MD [Primary Care Provider] - 03/01/25 4:05 pm Diet: Regular Diet Texture: Dental soft (bite-sized) Addtl Attending Provider Instructions: Chemotherapy (chemo) or radiation therapy to the head or neck can affect how well you can chew and swallow. This can make it harder to eat or drink. The side effects are more common a week or two after treatment starts. They may last for a few weeks or even months after treatment is over. Side effects depend on where the cancer is in your mouth or throat. Surgery for head or neck cancer may also cause long-term changes to the mouth and tongue. Cancer treatments can affect your sense of taste and smell, which can make it hard to eat. You may get a dry mouth, a cough, or a sore and swollen throat. If you have chemo or radiation, you may have other side effects, including: Swelling and redness in the lining of the mouth and throat.A dry mouth.A yeast infection in the mouth (thrush or bren).Tightness of the jaw. If the side effects are so bad that you can't eat, you can get nutrition through a feeding tube. The tube is put into your stomach and is used to give food, liquids, and medicines. And speech therapy or special swallowing exercises can help if you're having trouble with your tongue, mouth, or throat. What can you do if you have trouble eating? Coping with side effects from cancer treatment can be a challenge. But there are many things you can do at home to make your mouth and throat feel better. Try to think of food as medicine.It's part of your treatment. You need plenty of calories and protein to get better. Get extra protein by adding plain, low-cost protein powder to smoothies, shakes, breakfast drinks, or nutritional drinks (such as Ensure or Boost).Eat foods you like, but be aware that your sense of taste may change.After you recover, you may not want to eat the same foods. [place] with new or different foods.Try softer foods.If your mouth is sore or you have trouble swallowing, soft foods can be easier to eat. Try foods like cooked cereals, scrambled eggs, cottage cheese, tender chicken, flaky fish, mashed potatoes, or even baby food, which comes in many flavours. Soft, moist foods tend to be easiest to swallow.Stay away from spicy or acidic foods if they hurt.And try foods at different temperatures to find out the way you like it. Make a rinse to keep your mouth from getting dry.Stir together 1 tsp of salt, 1 tsp of baking soda, and 4 cups of water. Use a small amount to rinse your mouth 4 to 6 times each day. Spit out the rinse. Don't swallow it.Don't use a mouthwash (or any other juix-opg-jtjwgnk rinse) that contains alcohol.These can dry out your mouth or cause more pain. If your mouth remains too dry, ask your doctor about other oral gels, lubricants, substitute saliva, and mouthwashes that you might use.Drink plenty of fluids.This can help prevent dehydration. Drinking through a straw may help with pain.Practice good oral hygiene.Use a very soft toothbrush to brush your teeth. You could also use a soft cloth. When your mouth is dry, you are more likely to get tooth decay or have other dental problems. Try to see your dentist at the start of your cancer treatments. If you are having trouble eating, you can get support from a registered dietitian or a dietitian who works in cancer care. A dietitian can help you find ways to meet your nutrition needs. Follow-up care is a hou part of your treatment and safety. Be sure to make and g o to all appointments, and call your doctor or nurse advice lineif you are having problems. It's also a good idea to know your test results and keep a list of the medicines you take. Addtl Defensive Secondary Coach Provider Instructions: please get a liquid vitamin with iron if you cannot eat gummy vitamins and take daily Pending Studies at Discharge: No Stand-Alone Forms: My [facility], Smoking Cessation Medications and DC Order Prescriptions: New potassium chloride 20 mEq packet 20 meq PO DAILY Qty: 30 2RF Continued fluorometholone acetate 0.1 % drops,suspension 1 drp ophthalmic (eye) DAILY Patient Comments: Right eye timolol 0.5 % drops 1 drp ophthalmic (eye) DAILY Patient Comments: Right eye verapamil 40 mg tablet 40 mg PO QID escitalopram oxalate [Lexapro] 20 mg tablet 20 mg PO DAILY hydroxyzine HCl 10 mg tablet 10 mg PO TID PRN (Reason: Anxiety) aspirin [Adult Low Dose Aspirin] 81 mg tablet,delayed release (DR/EC) 81 mg PO DAILY lisinopril 20 mg tablet 40 mg PO DAILY levothyroxine 125 mcg tablet 125 mcg PO DAILY Qty: 90 1RF Rx Instructions: Take medication in AM with water 30-45 minutes before meal and medications fluticasone propionate 50 mcg/actuation spray,suspension 2 spray intranasal DAILY PRN (Reason: Allergy Symptoms) Rx Instructions: administer into each nostril Changed pregabalin 300 mg capsule 300 mg PO BID Qty: 60 2RF Discontinued All Day Allergy (cetirizine) 10 mg capsule 10 mg PO DAILY PRN (Reason: Allergy Symptoms) Discharge Orders: Discharge Order (Routine); Ordered 02/16/25 Ordered By: Tiburcio Merritt Admission Data Admit Date/Time: 02/13/25 17:40 Attending Provider: Tiburcio Merritt Admit Provider: Delaney Turner Primary Care Provider: Francisco Morgan Other Providers: Delaney Turner Other Interventions: Discharge Summary Assessment (RN) Last Done: 02/16/25 13:01 Hospital Stay Data Consultations 02/13/25 17:24 ED Decision to Admit Stat Diagnostic Imagining Performed 02/13/25 15:00 CT abd pelvis wo con Stat Pending Results Patient Have Any Pending Studies at Discharge: No Discharge Instructions Given to Patient (Per Discharging Provider) Chemotherapy (chemo) or radiation therapy to the head or neck can affect how well you can chew and swallow. This can make it harder to eat or drink. The side effects are more common a week or two after treatment starts. They may last for a few weeks or even months after treatment is over. Side effects depend on where the cancer is in your mouth or throat. Surgery for head or neck cancer may also cause long-term changes to the mouth and tongue. Cancer treatments can affect your sense of taste and smell, which can make it hard to eat. You may get a dry mouth, a cough, or a sore and swollen throat. If you have chemo or radiation, you may have other side effects, including: Swelling and redness in the lining of the mouth and throat.A dry mouth.A yeast infection in the mouth (thrush or bren).Tightness of the jaw. If the side effects are so bad that you can't eat, you can get nutrition through a feeding tube. The tube is put into your stomach and is used to give food, liquids, and medicines. And speech therapy or special swallowing exercises can help if you're having trouble with your tongue, mouth, or throat. What can you do if you have trouble eating? Coping with side effects from cancer treatment can be a challenge. But there are many things you can do at home to make your mouth and throat feel better. Try to think of food as medicine.It's part of your treatment. You need plenty of calories and protein to get better. Get extra protein by adding plain, low-cost protein powder to smoothies, shakes, breakfast drinks, or nutritional drinks (such as Ensure or Boost).Eat foods you like, but be aware that your sense of taste may change.After you recover, you may not want to eat the same foods. [place] with new or different foods.Try softer foods.If your mouth is sore or you have trouble swallowing, soft foods can be easier to eat. Try foods like cooked cereals, scrambled eggs, cottage cheese, tender chicken, flaky fish, mashed potatoes, or even baby food, which comes in many flavours. Soft, moist foods tend to be easiest to swallow.Stay away from spicy or acidic foods if they hurt.And try foods at different temperatures to find out the way you like it. Make a rinse to keep your mouth from getting dry.Stir together 1 tsp of salt, 1 tsp of baking soda, and 4 cups of water. Use a small amount to rinse your mouth 4 to 6 times each day. Spit out the rinse. Don't swallow it.Don't use a mouthwash (or any other hyzc-hvf-tnwkeod rinse) that contains alcohol.These can dry out your mouth or cause more pain. If your mouth remains too dry, ask your doctor about other oral gels, lubricants, substitute saliva, and mouthwashes that you might use.Drink plenty of fluids.This can help prevent dehydration. Drinking through a straw may help with pain.Practice good oral hygiene.Use a very soft toothbrush to brush your teeth. You could also use a soft cloth. When your mouth is dry, you are more li claudia to get tooth decay or have other dental problems. Try to see your dentist at the start of your cancer treatments. If you are having trouble eating, you can get support from a registered dietitia n or a dietitian who works in cancer care. A dietitian can help you find ways to meet your nutrition needs. Follow-up care is a hou part of your treatment and safety. Be sure to make and go to all appointments, and call your doctor or nurse advice lineif you are having problems. It's also a good idea to know your test results and keep a list of the medicines you take. Total Time Total Time Spent Total Time Spent (In Minutes): I personally have spent greater than 30 minutes of time on the patient discharge today including review of tests, documentation, exam, and discussing treatment plan moving forward with the patient. Coding Level of Care Code 30461 INP/OBS DISCH >30 MIN Diagnoses Nausea R11.0 Elevated troponin R79.89 Hypokalemia E87.6 Subclinical hypothyroidism E03.8 Status post glossectomy Z90.49
== END 2025-02-16 15:27 | disposition home or self-care (01) | DRG 641 ==
LOC: SUATTDRO → ED 13:52 → SUATTDRO 17:40 → 2N 17:40